=== PATIENT | female | born 1970 | race African-American/Black ===

== ENCOUNTER 2017-02-18 14:06 | Emergency (ER) | payer MEDICAID ==
[~2017-02-18] VITALS: Ht 149.9 cm; Wt 68.0 kg
[2017-02-18 14:22] VITALS: BP 189/122
[2017-02-18] MEDS ORDERED: PREDNISONE20 MG ORAL (14:38)
[2017-02-18] MEDS ORDERED: ACETAMINOPHEN-1 EAC1 ORAL (14:38)
[2017-02-18] MEDS ORDERED: Tylenol #3 tab (300mg/30mg) ORAL ONE (14:45)
[2017-02-18 14:53] VITALS: BP 189/122
--- NOTE | 2017-02-18 20:06 | Emergency Room Report ---
History of Present Illness General Chief Complaint: Pain Source: Patient Present Illness HPI The patient is a 47-year-old female presenting with stiff and painful hands and lower back. This has been increasing and has gotten worse in the past week. She denies any injury to these areas. Stiffness is worse in the mornings and better with movement. Pain is a 9/10 dull ache to these areas and does not radiate. She denies any other symptoms including N, V, F, chills, SOB, CP, rash Allergies: Uncoded Allergies: PENICILLIN (Allergy, Unknown, 02/18/17) Patient History Past Medical History: see triage record Pertinent Family History: none Last Menstrual Period: 1 yr ago Reviewed Nursing Documentation: PMH: Agreed, PSxH: Agreed Nursing Documentation-PMH Hx Hypertension: Yes Review of Systems All Other Systems: negative except mentioned in HPI Physical Exam Vital Signs Date Time Temp Pulse Resp B/P Pulse Ox O2 Delivery O2 Flow Rate FiO2 02/18/17 14:15 98.1 71 14 189/122 97 Room Air Sp02 EP Interpretation: reviewed, normal General Appearance: no apparent distress, alert, GCS 15, non-toxic Head: normocephalic, atraumatic Eyes: bilateral eye PERRL, bilateral eye normal inspection ENT: hearing grossly normal, normal pharynx, no angioedema, normal voice Neck: full range of motion, supple/symm/no masses Musculoskeletal: normal range of motion, swelling - minimal swelling of IP joints of hands, tender - TTP across all joints of hands Neurologic: alert, oriented x3, responsive, motor strength/tone normal, sensory intact, speech normal Psychiatric: judgement/insight normal, memory normal, mood/affect normal, no suicidal/homicidal ideation Skin: normal color, no rash, warm/dry, well hydrated Medical Decision Making PA Attestation Dr. Crain is my supervising physician. Patient management was discussed with my supervising physician Diagnostic Impression: Primary Impression: Arthritis ER Course The patient is a 47-year-old female presenting with stiff and painful hands and lower back. Ddx considered include but not limited to sprain/strain, fracture, contusion, arthritis Physical exam: No apparent distress There is diffuse tender to palpation over the joints of the hands. Full active range of motion. There is minimal swelling of the IP joints. No other deformities. There is tenderness to palpation over lumbar spine paraspinal muscles. No step- offs. Full active range of motion. Normal gait No imaging is needed at this time. She is discharged home with a prescription for pain medication and needs to followup with primary doctor Last Vital Signs Date Time Temp Pulse Resp B/P Pulse Ox O2 Delivery O2 Flow Rate FiO2 02/18/17 14:53 98.1 62 14 189/122 97 Room Air Status: improved Disposition: HOME, SELF-CARE Condition: Improved Scripts Prednisone* (PREDNISONE*) 20 Mg Tablet 20 MG ORAL DAILY, #5 TAB 0 Refills Prov: DIONNE GUIDRY 02/18/17 Acetaminophen With Codeine (T#3) (TYLENOL #3 TAB*) Y Tab 1 TAB ORAL Q6HR Y for For Pain, #10 TAB Prov: DIONNE GUIDRY 02/18/17 Patient Instructions: Arthritis Additional Instructions: I discussed my findings with the patient. All questions and concerns have been answered. Treatment and medication compliance have been addressed. I advised the patient that they need to follow up with PMD in 3-5 days. Return to ED if pain remains or worsens, numbness or tingling occurs, new rash is noticed, fever is noticed, or if needed for any reason. Patient verbalized understanding of discharge instructions. DIONNE GUIDRY Feb 18, 2017 20:06
== END 2017-02-18 14:52 | disposition home or self-care (01) ==
LOC: EMR 14:25
DX: M46.96 Unspecified inflammatory spondylopathy, lumbar region (principal); I10 Essential (primary) hypertension; Z88.0 Allergy status to penicillin
CPT/HCPCS: 99284